=== PATIENT | male | born 1940 | race Caucasian/White ===

== ENCOUNTER 2018-11-28 18:00 | Emergency (ER) | payer MEDICARE, BC, OTHER ==
[2018-11-28] MEDS: DIPHTH/TET/ACEL PERTUSS (ADULT) 0.5 ML VIAL IM* (19:52)
== END 2018-11-28 20:30 | disposition home or self-care (01) ==
LOC: E/R 18:00
DX: S06.0X0A Concussion without loss of consciousness, initial encounter (principal); S00.81XA Abrasion of other part of head, initial encounter; I10 Essential (primary) hypertension; W01.0XXA Fall on same level from slipping, tripping and stumbling without subsequent striking against object, initial encounter; Y92.9 Unspecified place or not applicable
CPT/HCPCS: 70450; 70486; 72125; 90471; 90715; 99284-25